=== PATIENT | male | born 1970 | race Caucasian/White ===

== ENCOUNTER 2016-06-09 09:07 | Emergency (ER) | payer SELFPAY ==
[~2016-06-09] VITALS: Wt 72.0 kg
[~2016-06-09 09:07] MED LIST: IBUP800T25 PO
--- NOTE | 2016-06-09 10:53 | RADRPT ---
PROCEDURE: XR Chest. CLINICAL INDICATION: Cough TECHNIQUE: Single portable view of the chest was obtained COMPARISON: 10/07/2015 FINDINGS: There is mild cardiomegaly. There is mild pulmonary vascular congestion. There is no pleural effusion. There is no pneumothorax. The bones and soft tissues are unremarkable. RPTAT: AA IMPRESSION: Mild cardiomegaly with mild pulmonary vascular congestion. .Levon Yadav MD, MD Date Time Electronically viewed and signed by .Levon Yadav MD, on 06/09/2016 10:52 .S/
[2016-06-09] MEDS ORDERED: BENZ100C70 PO (11:47)
[2016-06-09] MEDS ORDERED: ALBU8.5H3 INH (11:47)
[2016-06-09] MEDS ORDERED: AZIT250T94 PO (11:47)
--- NOTE | 2016-06-09 11:51 | ERD ---
ER Documentation Chief Complaint Date/Time DATE: 06/09/16 TIME: 11:48 Chief Complaint cough and bodyaches for the past month. no distress noted. HPI 46-year-old male with no significant past medical history presents the ED complaining of a productive cough and congestion that started 1 month ago. States that he is tried qlqd-qkw-jikazmm cough medication but has not been relieving his symptoms. Denies any sick contacts. Denies any chest pain, shortness of breath, leg swelling, abdominal pain, nausea, vomiting, wheezing. ROS All systems reviewed and are negative except as per history of present illness. Medications Home Meds Active Scripts Albuterol Sulfate* (Proair HFA*) 8.5 Gm Hfa.aer.ad, 2 PUFF INH Q4, #1 INHALER Prov:FRANCIE CUETO PA-C 06/09/16 Benzonatate* (Tessalon Perle*) 100 Mg Capsule, 100 MG PO Q8H Y for COUGH, #20 CAP Prov:FRANCIE CUETO PA-C 06/09/16 Azithromycin* (Zithromax*) 250 Mg Tablet, 250 MG PO .ZPACK DIRECTED, #6 TAB TAKE 500 MG (2 TABS) THE FIRST DAY THEN 250 MG (1 TAB) DAYS 2-5 Prov:FRANCIE CUETO PA-C 06/09/16 Ibuprofen* (Motrin*) 800 Mg Tab, 800 MG PO Q6H Y for PAIN AND OR ELEVATED TEMP, #30 TAB Prov:RASHIDA YOUNGER DO 10/07/15 Allergies Allergies: Coded Allergies: No Known Allergy (Unverified , 10/07/15) PMhx/Soc Medical and Surgical Hx: pt denies Medical Hx, pt denies Surgical Hx Hx Alcohol Use: No Hx Substance Use: No Hx Tobacco Use: No Smoking Status: Never smoker Physical Exam Vitals Vital Signs Date Time Temp Pulse Resp B/P Pulse Ox O2 Delivery O2 Flow Rate FiO2 06/09/16 09:12 99.0 94 20 127/72 97 Physical Exam Const: Vbs-znf-lhrqjawms, well-nourished. In no acute distress. Head: Atraumatic, normocephalic Eyes: Normal Conjunctiva without injection. No purulent discharge. PERRL. EOMI ENT: Normal external ear. Ear canal without erythema. Tympanic membrane pearly gamino without effusion or bulging. Nasal canal clear with normal turbinates. Moist oropharynx without tonsillar exudates. Non-erythematous pharynx. Uvula midline. No drooling. No trismus. Neck: Full range of motion. No meningismus. No cervical lymphadenopathy. Resp: Clear to auscultation bilaterally. No wheezing, rhonchi, rales, or crackles. No accessory muscle use. No retractions. Cardio: Regular rate and rhythm. No murmurs, rubs or gallops. Abd: Soft, non tender, non distended. Normal bowel sounds. No palpable masses. No rebound tenderness. No guarding. Skin: No petechiae or rashes Back: No midline tenderness. No CVA tenderness. Ext: No cyanosis, or edema. Neur: Awake and alert. Psych: Normal Mood and Affect Procedures/MDM This is a 46-year-old male with no significant past medical history presents the ED complaining of a productive cough that occurred 1 month ago. Patient is afebrile and nontoxic-appearing. Patient has normal vital signs. A chest x- ray was ordered to further evaluate patient since his cough has been going on for 1 month. She does not appear in respiratory distress. There is no indication for a breathing treatment at this time. PROCEDURE: XR Chest. CLINICAL INDICATION: Cough TECHNIQUE: Single portable view of the chest was obtained COMPARISON: 10/07/2015 FINDINGS: There is mild cardiomegaly. There is mild pulmonary vascular congestion. There is no pleural effusion. There is no pneumothorax. The bones and soft tissues are unremarkable. RPTAT: AA IMPRESSION: Mild cardiomegaly with mild pulmonary vascular congestion. The findings of mild cardiomegaly with mild pulmonary vascular congestion was discussed with my supervising physician, Dr. Tobin. Both agreed that patient can be managed on outpatient basis at this time. Clinically patient does not appear to have CHF. There is no pitting edema noted. Ihis patient presents to the ED with symptoms consistent with bronchitis. Patient's physical exam include lungs which were clear to auscultation and a normal pulse oximetry. There is a low suspicion for pneumonia, pneumothorax, pulmonary embolism, epiglottitis, otitis media, otitis externa, viral/strep pharyngitis, sinusitis, peritonsillar abscess, mastoiditis, retropharyngeal abscess, meningitis, sepsis , acute abdomen or other emergent conditions. Fluids, rest, and symptomatic treatment are recommended for the management of patient's symptoms. Discharge medications: Zithromax, Tessalon Perles, Pro-air Patient was instructed to return to the ED for any new or worsening symptoms. They should otherwise follow up with the primary care provider within 1-2 days. The patient's questions were answered at the time of discharge. Patient understood and agreed with discharge management. Departure Diagnosis: Primary Impression: Bronchitis Condition: Stable Patient Instructions: Bronchitis, Antiobiotic Treatment (Adult) Referrals: [facility] Usted se dejesus hecho un examen mdico de control que le indica que no est en boy condicin que requiera tratamiento urgente en el Departamento de Emergencia. Un estudio ms profundo y el tratamiento de madrigal condicin pueden esperar sin ningn riesgo hasta que usted sea atendida/o en el consultorio de madrigal mdico o boy cl robert. Es responsabilidad suya arreglar boy leticia para el seguimiento del eulogio. MANEJO DE CONDICIONES NO URGENTES EN EL FUTURO 1) Si usted tiene un mdico de atencin primaria: Usted debera llamar a madrigal mdico de atencin primaria antes de venir al departamento de emergencia. Despus de las horas de consultorio, madrigal doctor o madrigal asociado/a est disponible por telfono. El mdico o enfermero de marisol en el servicio telefnico puede asesorarle por ramona medio para atender el problema, o eulogio contrario se puede programar boy leticia. 2) Si usted no tiene un mdico de atencin primaria: Llame al mdico o clnica de referencia que aparece abajo adriana las horas de consultorio para hacer boy leticia para que le vean. CLINICAS: [facility] 050 [phone] [facility] 147 [phone] [facility] 592 [phone] [facility] 619 [phone] [place] [id number] [phone] [facility]. [phone] [address] [facility]. [facility] () Usted se dejesus hecho un examen mdico de control que le indica que no est en boy condicin que requiera tratamiento urgente en el Departamento de Emergencia. Un estudio ms profundo y el tratamiento de madrigal condicin pueden esperar sin ningn riesgo hasta que usted sea atendida/o en el consultorio de madrigal mdico o boy cl robert. Es responsabilidad suya arreglar boy leticia para el seguimiento del eulogio. MANEJO DE CONDICIONES NO URGENTES EN EL FUTURO 1) Si usted tiene un mdico de atencin primaria: Usted debera llamar a madrigal mdico de atencin primaria antes de venir al departamento de emergencia. Despus de las horas de consultorio, madrigal doctor o madrigal asociado/a est disponible por telfono. El mdico o enfermero de marisol en el servicio telefnico puede asesorarle por ramona medio para atender el problema, o eulogio contrario se puede programar boy leticia. 2) Si usted no tiene un mdico de atencin primaria: Llame al mdico o condado institucions de referencia que aparece abajo adriana las horas de consultorio para hacer boy leticia para que le vean. SI USTED NO PUEDE PAGAR PARA PET[place] UN MEDICO puede ir a: [facility] [address] [place] [address] [facility] [address] [place] [address] [facility] [address] [place] [address] [facility] [address] [place] [address] Additional Instructions: Visite a madrigal mdico maana para un EXAMEN.Regrese a estas instalaciones si no se mejora moise esperbamos o moise le dijimos. FRANCIE CUETO PA-C Jun 09, 2016 11:51
[2016-06-09 11:54] VITALS: BP 118/68; PULSE 68; RESP 20; TEMP 98.3
== END 2016-06-09 11:54 | disposition home or self-care (01) ==
LOC: FTE 09:07
DX: J20.9 Acute bronchitis, unspecified (principal)
CPT/HCPCS: 71010

== ENCOUNTER 2017-01-26 22:34 | Inpatient (IN) | payer MEDICAID ==
[~2017-01-26] VITALS: Ht 172.7 cm; Wt 58.5 kg
[~2017-01-26 22:34] MED LIST changes: +ALBU8.5H3 INH; +AZIT250T94 PO; +BENZ100C70 PO
[2017-01-26 23:14] VITALS: Ht 172.7 cm; Wt 58.5 kg
[2017-01-27] VITALS (10 sets, daily range): BP systolic 99–116; BP diastolic 60–83; PULSE 55–91; RESP 17–20; TEMP 98.1
--- NOTE | 2017-01-27 00:35 | ERA ---
ER Documentation Chief Complaint Date/Time DATE: 01/27/17 TIME: 00:35 Chief Complaint SOB feeling like drowning. HPI The patient is a 46-year-old male, presenting with acute dyspnea, he feels as if he is drowning. He denies similar symptoms previously he does not have any fever, chills, chest pain, abdominal pain, vomiting, dysuria. He does not smoke , drinks socially Past medical history: None Past surgical history: Cardiac valve replacement about 5 months ago however he could not tell me which valve was replaced ROS All systems reviewed and are negative except as per history of present illness. Medications Home Meds Active Scripts Albuterol Sulfate* (Proair HFA*) 8.5 Gm Hfa.aer.ad, 2 PUFF INH Q4, #1 INHALER Prov:FRANCIE CUETO PA-C 06/09/16 Ibuprofen* (Motrin*) 800 Mg Tab, 800 MG PO Q6H Y for PAIN AND OR ELEVATED TEMP, #30 TAB Prov:RASHIDA YOUNGER DO 10/07/15 Reported Medications Warfarin Sodium* (Coumadin*) 2.5 Mg Tablet, 2.5 MG PO DAILY, TAB TAKE 2 TABLETS BY MOUTH ON SUNDAY AND ONE TABLET ALL OTHER DAYS OF THE WEEK 01/27/17 Discontinued Scripts Benzonatate* (Tessalon Perle*) 100 Mg Capsule, 100 MG PO Q8H Y for COUGH, #20 CAP Prov:FRANCIE CUETO PA-C 06/09/16 Azithromycin* (Zithromax*) 250 Mg Tablet, 250 MG PO .ZPACK DIRECTED, #6 TAB TAKE 500 MG (2 TABS) THE FIRST DAY THEN 250 MG (1 TAB) DAYS 2-5 Prov:FRANCIE CUETO PA-C 06/09/16 Allergies Allergies: Coded Allergies: No Known Allergy (Unverified , 10/07/15) PMhx/Soc Hx Alcohol Use: No Hx Substance Use: No Hx Tobacco Use: No Physical Exam Vitals Vital Signs Date Time Temp Pulse Resp B/P Pulse Ox O2 Delivery O2 Flow Rate FiO2 01/27/17 02:27 59 18 127/87 97 Room Air 01/26/17 23:14 98.1 75 24 128/91 98 Physical Exam Const: No acute distress. Head: Atraumatic. Eyes: Normal Conjunctiva. ENT: Normal External Ears, Nose and Mouth. Neck: Full range of motion. No meningismus. Resp: Minimal bibasilar crackles Cardio: Regular rate and rhythm. Abd: Soft, non distended, normal bowel sounds, non tender. Skin: No petechiae or rashes. Back: No midline or flank tenderness. Ext: No cyanosis, or edema. Neur: Awake and alert. No focal deficit Psych: Normal Mood and Affect. Result Diagram: 01/27/17 0044 01/27/17 0044 Results 24 hrs Laboratory Tests Test 01/27/17 00:44 01/27/17 00:57 White Blood Count 6.410^3/ul Red Blood Count 4.8810^6/ul Hemoglobin 14.9g/dl Hematocrit 42.8% Mean Corpuscular Volume 87.7fl Mean Corpuscular Hemoglobin 30.5pg Mean Corpuscular Hemoglobin Concent 34.8g/dl Red Cell Distribution Width 14.6% Platelet Count 48942^3/UL Mean Platelet Volume 9.8fl Neutrophils % 69.9% Lymphocytes % 20.1% Monocytes % 6.0% Eosinophils % 3.3% Basophils % 0.5% Nucleated Red Blood Cells % 0.0/100WBC Neutrophils # (Manual) 4.510^3/ul Lymphocytes # 1.310^3/ul Monocytes # 0.410^3/ul Eosinophils # 0.210^3/ul Basophils # 0.010^3/ul Nucleated Red Blood Cells # 0.010^3/ul Prothrombin Time 21.5Sec Prothrombin Time Ratio 1.7 INR International Normalized Ratio 1.85 Activated Partial Thromboplast Time 36.9Sec D-Dimer 251.08ng/ml D-Dimer Comment Sodium Level 139mmol/L Potassium Level 4.0mmol/L Chloride Level 106mmol/L Carbon Dioxide Level 25mmol/L Anion Gap 12 Blood Urea Nitrogen 9mg/dl Creatinine 0.69mg/dl Glucose Level 85mg/dl Calcium Level 9.6mg/dl Troponin I 0.030ng/ml B-Type Natriuretic Peptide 702PG/ML Bedside Urine pH (LAB) 5.0 Bedside Urine Protein (LAB) Negative Bedside Urine Glucose (UA) Negative Bedside Urine Ketones (LAB) Negative Bedside Urine Blood Negative Bedside Urine Nitrite (LAB) Negative Bedside Urine Leukocyte Esterase (L Negative Current Medications Medications (Trade) Dose Ordered Sig/Barrie Route PRN Reason Start Time Stop Time Status Last Admin Dose Admin Furosemide (Lasix) 20 mg ONCE ONCE IV 01/27/17 02:30 01/27/17 02:31 DC 01/27/17 02:26 IV Flush (NS 3 ml) 3 ml PER PROTOCOL IV 01/27/17 03:30 Ondansetron HCl (Zofran Inj) 4 mg Q6H PRN IV NAUSEA AND/OR VOMITING 01/27/17 03:30 Acetaminophen (Tylenol Tab) 650 mg Q6H PRN PO PAIN LEVEL 1-3 OR FEVER 01/27/17 03:30 Morphine Sulfate (morphine) 2 mg Q4H PRN IV PAIN LEVEL 7-10 01/27/17 03:30 Docusate Sodium (Colace) 100 mg Q12H PRN PO CONSTIPATION 01/27/17 03:30 Bisacodyl (Dulcolax) 5 mg DAILY PRN PO CONSTIPATION 01/27/17 03:30 Famotidine (Pepcid) 20 mg Q12 PO 01/27/17 03:30 Furosemide (Lasix) 40 mg BID DIURETICS IV 01/27/17 10:00 Albuterol (Ventolin Hfa) 2 puff Q4 INH 01/27/17 05:00 Warfarin Sodium (Coumadin) 2.5 mg DAILY@17 PO 01/27/17 17:00 Lisinopril (Zestril) 5 mg DAILY PO 01/27/17 09:00 Procedures/[place] [address] Rad[address] Main Line: [phone] DIAGNOSTIC IMAGING REPORT Patient: FLORIAN LOMBARDI : 1970 Age: 46 Sex: M MR #: [id number] DOS: 01/27/17 0045 Ordering MD: KHOI JOHN MD Location: E/R Room/Bed: PROCEDURE: Portable chest x-ray. CLINICAL INDICATION: Shortness of breath. TECHNIQUE: Portable AP view of the chest. COMPARISON: 06/09/2016. FINDINGS: No pulmonary edema or conolidation is identified. The patient is status post median sternotomy. The cardiac silhouette is magnified. No pleural effusion is seen. There is no pneumothorax. IMPRESSION: 1. No evidence of acute cardiopulmonary disease. 2. Median sternotomy. RPTAT: HTAR .Bryant Melendez MD, MD Date Time Electronically viewed and signed by .Bryant Melendez MD, MD on 01/27/2017 02:09 .R/ CC: KHOI JOHN MD EKG: Read by emergency physician Rate/Rhythm: Normal Sinus Rhythm 63 beats/min QRS, ST, T-waves: No ST elevation, no T inversion, LAE, Inferolateral ST and T abnormality Impression: Abnormal EKG MEDICAL MAKING DECISION: The patient is a 46-year-old male, presenting with acute new onset of CHF. He was treated with Lasix 20 mg IV with good response. The differential diagnoses considered include but are not limited to asthma, COPD, pneumonia, pulmonary embolus, pleural effusion, congestive heart failure. Departure Diagnosis: Primary Impression: CHF (congestive heart failure) Condition: Stable Comments I discussed the findings with the patient. I discussed the patient with the on- call hospitalist Dr. Casas at 2:50 AM. who was made aware of the lab, the treatment, the patient condition. The patient is admitted to telemetry The patient's blood pressure was elevated (>120/80) but appears stable without evidence of hypertension emergency or urgency. The patient was counseled about the risks of hypertension and urged to pursue outpatient monitoring and therapy within a week with their primary care physician. KHOI JOHN MD Jan 27, 2017 00:35
[2017-01-27 00:50] LABS: URINE BLOOD (Dip) POC Negative (NEGATIVE)
[2017-01-27 01:22] LABS: BASOPHILS % 0.5 % (0.0-2.0); EOSINOPHILS # 0.2 10^3/ul (0.0-0.5); EOSINOPHILS % 3.3 % (0.0-7.0); HEMATOCRIT 42.8 % (42.0-52.0); HEMOGLOBIN 14.9 g/dl (14.0-18.0); LYMPHOCYTES # 1.3 10^3/ul (0.8-2.9); LYMPHOCYTES % 20.1 % (15.0-51.0); MEAN CORPUSCULAR HEMOGLOBIN 30.5 pg (29.0-33.0); MEAN CORPUSCULAR HGB CONC 34.8 g/dl (32.0-37.0); MEAN CORPUSCULAR VOLUME 87.7 fl (82.0-101.0); MEAN PLATELET VOLUME 9.8 fl (7.4-10.4); MONOCYTE # 0.4 10^3/ul (0.3-0.9); NEUTROPHILS % 69.9 % (39.0-77.0); PLATELET COUNT 280 10^3/UL (140-415); RED BLOOD COUNT 4.88 10^6/ul (4.70-6.10); RED CELL DISTRIBUTION WIDTH 14.6 % (11.5-14.5); WHITE BLOOD COUNT 6.4 10^3/ul (4.8-10.8)
[2017-01-27 01:35] LABS: INR 1.85; PARTIAL THROMBOPLASTIN TIME 36.9 Sec (25.0-35.0); PROTIME 21.5 Sec (12.2-14.2); PT RATIO 1.7
[2017-01-27 01:37] LABS: CALCIUM 9.6 mg/dl (8.4-10.2); CREATININE 0.69 mg/dl (0.61-1.24)
[2017-01-27 01:38] LABS: D-DIMER 251.08 ng/ml (<460)
[2017-01-27 01:49] LABS: TROPONIN-I 0.03 ng/ml (0.00-0.12)
--- NOTE | 2017-01-27 02:09 | RADRPT ---
PROCEDURE: Portable chest x-ray. CLINICAL INDICATION: Shortness of breath. TECHNIQUE: Portable AP view of the chest. COMPARISON: 06/09/2016. FINDINGS: No pulmonary edema or conolidation is identified. The patient is status post median sternotomy. The cardiac silhouette is magnified. No pleural effusion is seen. There is no pneumothorax. IMPRESSION: 1. No evidence of acute cardiopulmonary disease. 2. Median sternotomy. RPTAT: HTAR .Bryant Melendez MD, MD Date Time Electronically viewed and signed by .Bryant Melendez MD, MD on 01/27/2017 02:09 .R/
[2017-01-27] MEDS ORDERED: WARF2.5T PO (02:22)
[2017-01-27] MEDS ORDERED: FUROSEMIDE 20 MG INJ IV ONE (02:30)
[2017-01-27] MEDS ORDERED: DOCUSATE SODIUM 100 MG CAP PO PRN (03:30)
[2017-01-27] MEDS ORDERED: ONDANSETRON 4 MG INJ IV PRN (03:30)
[2017-01-27] MEDS ORDERED: ACETAMINOPHEN 325 MG TAB PO PRN (03:30)
[2017-01-27] MEDS ORDERED: NACL 0.9% 3 ML SYG IV SCH (03:30)
[2017-01-27] MEDS ORDERED: morphine 2 MG INJ IV PRN (03:30)
[2017-01-27] MEDS ORDERED: BISACODYL (EC) 5 MG TAB PO PRN (03:30)
[2017-01-27 04:21] LABS: TROPONIN-I 0.025 ng/ml (0.00-0.12)
[2017-01-27 04:22] LABS: CK-MB 2.63 ng/ml (0.0-2.4)
[2017-01-27] MEDS ORDERED: ALBUTEROL HFA 8 GM INHALER INH SCH (05:00)
[2017-01-27 05:53] LABS: CHOL/HDL RATIO 2.8 RATIO
[2017-01-27 05:54] LABS: INR 1.9; PT RATIO 1.7
[2017-01-27 06:24] LABS: THYROID STIMULATING HORMONE 2.17 MIU/L (0.465-4.680)
[2017-01-27] MEDS: FAMOTIDINE 20 MG TAB PO SCH ×3 (06:41→21:37)
--- NOTE | 2017-01-27 08:26 | HP ---
Date/Time of Note Date/Time of Note DATE: 01/27/17 TIME: 08:18 Assessment/Plan VTE Prophylaxis VTE Prophylaxis Intervention: other (coumadin) Assessment/Plan Chief Complaint/Hosp Course This is a 46-year-old male being admitted to the telemetry floor for: #1 shortness of breath: Likely secondary to possible new onset CHF. Patient's BNP is 700. Patient does have a recent history of heart valve replacement, though unsure which valve was replaced. At the current time will obtain a echocardiogram. Trend cardiac troponins. Start patient on ALEJANDRO inhibitor. Will defer starting of beta-sabrina at this time secondary to bradycardia. Check lipids. The patient on Lasix for diuresis. Check hemoglobin A1c, cardiology consult. #2 artificial heart valve: Unsure exactly which heart valve was replaced, I feel like he may be a mitral valve however we will get a echocardiogram. Continue patient's Coumadin with goal INR of 2.5-3.5. Check daily INR. #3 DVT and GI prophylaxis: On Coumadin, acid sabrina further treatment surgery will be implemented as per the clinical course , Problems: HPI/ROS Admit Date/Time Admit Date/Time Hx of Present Illness Chief complaint: Shortness of breath 1 day The patient is a 46-year-old male, presenting with acute dyspnea, he feels as if he is drowning. He states that he started feeling this way while he was in [place] last night. He denies similar symptoms previously he does not have any fever, chills, chest pain, abdominal pain, vomiting, dysuria. Of note patient states that he had a cardiac valve replaced approximately 4 months ago however he does not know which valve it is. He is on Coumadin at this time. He has INR checked as an outpatient. Allergies: NKDA Medications: See MAR ROS Const: Negative for fever, chills, weight gain or weight loss, fatigue, or diaphoresis Eyes : No pain discharge or redness or change in visual acuity ENT: No pain, sore throat, congestion, congestion, dysphagia or discharge Respiratory: As per HPI Cardiovascular: As per HPI GI : no change in appetite, abdominal pain, nausea, vomiting, diarrhea, constipation, or change in the color his stool Genitourinary: No dysuria, hematuria, flank pain , discharge or CVA tenderness Musculoskeletal: No joint pain, back pain, neck pain, restricted range of motion in neck or joints Skin: No rash, bruising or hives Neuro: No headache, dizziness, syncope, seizure, focal weakness Endocrine: No polyuria, polydipsia, temperature intolerance Psych: No hallucination, depression, anxiety or suicidal ideation PMH/Family/Social Past Medical History Valve disease Past Surgical History Cardiac valve replaced unknown which valve Family History Significant Family History: heart disease (That) Social History Alcohol Use: sober (Patient used to be a very heavy drinker however he quit 1 year ago) Smoking Status: Former smoker Drug Use: none Exam/Review of Systems Vital Signs Vitals Vital Signs Date Time Temp Pulse Resp B/P Pulse Ox O2 Delivery O2 Flow Rate FiO2 01/27/17 05:30 59 21 113/85 95 Room Air 01/26/17 23:14 98.1 Intake and Output 01/26/17 01/26/17 01/27/17 15:00 23:00 07:00 Output Total 1200 ml Balance -1200 ml Exam Exam General: Patient is lying in bed and does not appear in any acute distress HEENT: Atraumatic, normocephalic. The pupils are equal, round and reactive. Extraocular motor are intact Neck: Supple with full range of motion. No rigidity or meningismus Chest: Nontender Lungs: Mild crackles on auscultation Heart: Sinus bradycardia, possible audible murmur left fifth intercostal space Abdomen: Soft , nontender, nondistended , bowel sounds are present. No guarding no rebound tenderness , No masses or organomegaly. No costovertebral temporal angle mass Extremities: Normal to inspection, no edema no cyanosis Neurologic: Normal mental status, speech normal, cranial nerves II through XII are intact, motor and sensory are intact, no focal weakness skin: Surgical scar a the anterior chest Additional Comments PROCEDURE: Portable chest x-ray. CLINICAL INDICATION: Shortness of breath. TECHNIQUE: Portable AP view of the chest. COMPARISON: 06/09/2016. FINDINGS: No pulmonary edema or conolidation is identified. The patient is status post median sternotomy. The cardiac silhouette is magnified. No pleural effusion is seen. There is no pneumothorax. IMPRESSION: 1. No evidence of acute cardiopulmonary disease. 2. Median sternotomy. RPTAT: HTAR .Bryant Melendez MD, MD Date Time Electronically viewed and signed by .Bryant Melendez MD, MD on 01/27/2017 02:09 .R/ CC: KHOI JOHN MD EKG: Rate/Rhythm: Normal Sinus Rhythm 63 beats/min QRS, ST, T-waves: No ST elevation, no T inversion, LAE, Inferolateral ST and T abnormality As per ED physician recommendation Labs Result Diagram: 01/27/174 01/27/174 Medications Medications Current Medications Ondansetron HCl (Zofran Inj) 4 mg Q6H PRN IV NAUSEA AND/OR VOMITING; Start 01/27 at 03:30 Acetaminophen (Tylenol Tab) 650 mg Q6H PRN PO PAIN LEVEL 1-3 OR FEVER; Start at 03:30 Morphine Sulfate (morphine) 2 mg Q4H PRN IV PAIN LEVEL 7-10; Start 01/27/17 at 03:30 Docusate Sodium (Colace) 100 mg Q12H PRN PO CONSTIPATION; Start 01/27/17 at 03: 30 Bisacodyl (Dulcolax) 5 mg DAILY PRN PO CONSTIPATION; Start 01/27/17 at 03:30 Famotidine (Pepcid) 20 mg Q12 PO Last administered on 01/27/17t 06:41; Admin Dose 20 MG; Start 01/27/17 at 03:30 Albuterol (Ventolin Hfa) 2 puff Q4 INH ; Start 01/27/17 at 05:00 Warfarin Sodium (Coumadin) 2.5 mg DAILY@17 PO ; Start 01/27/17 at 17:00 Lisinopril (Zestril) 5 mg DAILY PO ; Start 01/27/17 at 09:00 ARMANDO ARELLANO Jan 27, 2017 08:26
[2017-01-27] MEDS: ALBUTEROL 18 GM INHALER INH SCH ×4 (09:00→21:00)
[2017-01-27] MEDS: FUROSEMIDE 20 MG INJ IV SCH (09:27)
[2017-01-27] MEDS: LISINOPRIL 5 MG TAB PO SCH (09:39)
[2017-01-27] MEDS ORDERED: FUROSEMIDE 40 MG INJ IV SCH (10:00)
[2017-01-27 10:08] LABS: TROPONIN-I 0.029 ng/ml (0.00-0.12)
[2017-01-27 10:10] LABS: CK-MB 2.21 ng/ml (0.0-2.4)
--- NOTE | 2017-01-27 10:43 | CONS ---
Date/Time of Note Date/Time of Note DATE: 01/27/17 TIME: 10:41 Assessment/Plan Assessment/Plan Additional Assessment/Plan Acute Mild CHF Heart valve replacement -will plan for an echo -iv lasix -on warfarin Consultation Date/Type/Reason Admit Date/Time Hx of Present Illness The patient is a 46-year-old male, presenting with acute dyspnea, he feels as if he is drowning. He states that he started feeling this way while he was in taoism last night. He denies similar symptoms previously he does not have any fever, chills, chest pain, abdominal pain, vomiting, dysuria. Of note patient states that he had a cardiac valve replaced approximately 4 months ago however he does not know which valve it is. He is on Coumadin at this time. He has INR checked as an outpatient. His valve replacement may have been at [facility] and currently doing better with no chest pain Social History Alcohol Use: sober (Patient used to be a very heavy drinker however he quit 1 year ago) Smoking Status: Former smoker Drug Use: none Exam/Review of Systems Vital Signs Vitals Vital Signs Date Time Temp Pulse Resp B/P Pulse Ox O2 Delivery O2 Flow Rate FiO2 01/27/17 10:40 98.2 81 20 116/83 98 01/27/17 09:30 Room Air Intake and Output 01/26/17 01/26/17 01/27/17 15:00 23:00 07:00 Output Total 1200 ml Balance -1200 ml Results Result Diagram: 01/27/17 0044 01/27/17 0044 Results 24 hrs Laboratory Tests Test 01/27/17 00:44 01/27/17 00:57 01/27/17 03:40 01/27/17 05:18 White Blood Count 6.4 Red Blood Count 4.88 Hemoglobin 14.9 Hematocrit 42.8 Mean Corpuscular Volume 87.7 Mean Corpuscular Hemoglobin 30.5 Mean Corpuscular Hemoglobin Concent 34.8 Red Cell Distribution Width 14.6 H Platelet Count 280 Mean Platelet Volume 9.8 Neutrophils % 69.9 Lymphocytes % 20.1 Monocytes % 6.0 Eosinophils % 3.3 Basophils % 0.5 Nucleated Red Blood Cells % 0.0 Neutrophils # (Manual) 4.5 Lymphocytes # 1.3 Monocytes # 0.4 Eosinophils # 0.2 Basophils # 0.0 Nucleated Red Blood Cells # 0.0 Prothrombin Time 21.5 H 22.0 H Prothrombin Time Ratio 1.7 1.7 INR International Normalized Ratio 1.85 1.90 Activated Partial Thromboplast Time 36.9 H D-Dimer 251.08 D-Dimer Comment Sodium Level 139 Potassium Level 4.0 Chloride Level 106 Carbon Dioxide Level 25 Anion Gap 12 Blood Urea Nitrogen 9 Creatinine 0.69 Glucose Level 85 Calcium Level 9.6 Troponin I 0.030 0.025 B-Type Natriuretic Peptide 702 H Bedside Urine pH (LAB) 5.0 Bedside Urine Protein (LAB) Negative Bedside Urine Glucose (UA) Negative Bedside Urine Ketones (LAB) Negative Bedside Urine Blood Negative Bedside Urine Nitrite (LAB) Negative Bedside Urine Leukocyte Esterase (L Negative Creatine Kinase 93 Creatine Kinase Index 2.8 Creatinine Kinase MB (Mass) 2.63 H Hemoglobin A1c 5.2 Triglycerides Level 111 Cholesterol Level 166 LDL Cholesterol, Calculated 86 HDL Cholesterol 58 Cholesterol/HDL Ratio 2.8 Thyroid Stimulating Hormone (TSH) 2.170 Test 01/27/17 09:27 Creatine Kinase 84 Creatine Kinase Index 2.6 Creatinine Kinase MB (Mass) 2.21 Troponin I 0.029 Medications Medications Current Medications Ondansetron HCl (Zofran Inj) 4 mg Q6H PRN IV NAUSEA AND/OR VOMITING; Start 01/27 at 03:30 Acetaminophen (Tylenol Tab) 650 mg Q6H PRN PO PAIN LEVEL 1-3 OR FEVER; Start at 03:30 Morphine Sulfate (morphine) 2 mg Q4H PRN IV PAIN LEVEL 7-10; Start 01/27/17 at 03:30 Docusate Sodium (Colace) 100 mg Q12H PRN PO CONSTIPATION; Start 01/27/17 at 03: 30 Bisacodyl (Dulcolax) 5 mg DAILY PRN PO CONSTIPATION; Start 01/27/17 at 03:30 Famotidine (Pepcid) 20 mg Q12 PO Last administered on 01/27/17 09:23; Admin Dose 20 MG; Start 01/27/17 at 03:30 Warfarin Sodium (Coumadin) 2.5 mg DAILY@17 PO ; Start 01/27/17 at 17:00 Lisinopril (Zestril) 5 mg DAILY PO Last administered on 01/27/17 09:39; Admin Dose 5 MG; Start 01/27/17 at 09:00 Furosemide (Lasix) 20 mg DAILY IV Last administered on 01/27/17t 09:27; Admin Dose 20 MG; Start 01/27/17 at 09:00 FEI BROWN MD Jan 27, 2017 10:43
--- NOTE | 2017-01-27 17:36 | PN ---
Date/Time of Note Date/Time of Note DATE: 01/27/17 TIME: 17:33 Assessment/Plan VTE Prophylaxis VTE Prophylaxis Intervention: LMWH, other Lines/Catheters IV Catheter Type (from Nrs): Saline Lock Assessment/Plan Chief Complaint/Hosp Course 46 yo male with h/o mechanical valve replacement on coumadin (unclear details) who presents with acute diastolic CHF exacerbation - Await TTE result - Continue lasix for now - Continue coumadin to INR 2.5 goal Bobbi rasheed tomorrow Problems: Subjective 24 Hr Interval Summary Free Text/Dictation Feeling better he says, has filled three urine bottles, but unclear exact output Exam/Review of Systems Vital Signs Vitals Vital Signs Date Time Temp Pulse Resp B/P Pulse Ox O2 Delivery O2 Flow Rate FiO2 01/27/17 16:00 64 01/27/17 15:21 97.8 17 100/61 97 01/27/17 09:30 Room Air Intake and Output 01/26/17 01/26/17 01/27/17 15:00 23:00 07:00 Output Total 1200 ml Balance -1200 ml Exam Walking aroudn his room RRR, flat neck veins CLear lungs No peripehral edema Results Result Diagram: 01/27/17 0044 01/27/17 0044 Results 24 hrs Laboratory Tests Test 01/27/17 00:44 01/27/17 00:57 01/27/17 03:40 01/27/17 05:18 White Blood Count 6.4 Red Blood Count 4.88 Hemoglobin 14.9 Hematocrit 42.8 Mean Corpuscular Volume 87.7 Mean Corpuscular Hemoglobin 30.5 Mean Corpuscular Hemoglobin Concent 34.8 Red Cell Distribution Width 14.6 H Platelet Count 280 Mean Platelet Volume 9.8 Neutrophils % 69.9 Lymphocytes % 20.1 Monocytes % 6.0 Eosinophils % 3.3 Basophils % 0.5 Nucleated Red Blood Cells % 0.0 Neutrophils # (Manual) 4.5 Lymphocytes # 1.3 Monocytes # 0.4 Eosinophils # 0.2 Basophils # 0.0 Nucleated Red Blood Cells # 0.0 Prothrombin Time 21.5 H 22.0 H Prothrombin Time Ratio 1.7 1.7 INR International Normalized Ratio 1.85 1.90 Activated Partial Thromboplast Time 36.9 H D-Dimer 251.08 D-Dimer Comment Sodium Level 139 Potassium Level 4.0 Chloride Level 106 Carbon Dioxide Level 25 Anion Gap 12 Blood Urea Nitrogen 9 Creatinine 0.69 Glucose Level 85 Calcium Level 9.6 Troponin I 0.030 0.025 B-Type Natriuretic Peptide 702 H Bedside Urine pH (LAB) 5.0 Bedside Urine Protein (LAB) Negative Bedside Urine Glucose (UA) Negative Bedside Urine Ketones (LAB) Negative Bedside Urine Blood Negative Bedside Urine Nitrite (LAB) Negative Bedside Urine Leukocyte Esterase (L Negative Creatine Kinase 93 Creatine Kinase Index 2.8 Creatinine Kinase MB (Mass) 2.63 H Hemoglobin A1c 5.2 Triglycerides Level 111 Cholesterol Level 166 LDL Cholesterol, Calculated 86 HDL Cholesterol 58 Cholesterol/HDL Ratio 2.8 Thyroid Stimulating Hormone (TSH) 2.170 Test 01/27/17 09:27 Creatine Kinase 84 Creatine Kinase Index 2.6 Creatinine Kinase MB (Mass) 2.21 Troponin I 0.029 Medications Medications Current Medications Ondansetron HCl (Zofran Inj) 4 mg Q6H PRN IV NAUSEA AND/OR VOMITING; Start 01/27 at 03:30 Acetaminophen (Tylenol Tab) 650 mg Q6H PRN PO PAIN LEVEL 1-3 OR FEVER; Start at 03:30 Morphine Sulfate (morphine) 2 mg Q4H PRN IV PAIN LEVEL 7-10; Start 01/27/17 at 03:30 Docusate Sodium (Colace) 100 mg Q12H PRN PO CONSTIPATION; Start 01/27/17 at 03: 30 Bisacodyl (Dulcolax) 5 mg DAILY PRN PO CONSTIPATION; Start 01/27/17 at 03:30 Famotidine (Pepcid) 20 mg Q12 PO Last administered on 01/27/17 09:23; Admin Dose 20 MG; Start 01/27/17 at 03:30 Warfarin Sodium (Coumadin) 2.5 mg DAILY@17 PO ; Start 01/27/17 at 17:00 Lisinopril (Zestril) 5 mg DAILY PO Last administered on 01/27/17 09:39; Admin Dose 5 MG; Start 01/27/17 at 09:00 Furosemide (Lasix) 20 mg DAILY IV Last administered on 01/27/17 09:27; Admin Dose 20 MG; Start 01/27/17 at 09:00 DEVEN METZ MD Jan 27, 2017 17:36
[2017-01-27] MEDS: WARFARIN 2.5 MG TAB PO SCH (18:18)
[2017-01-28] VITALS (10 sets, daily range): BP systolic 95–108; BP diastolic 60–77; PULSE 61–98; RESP 16–20
[2017-01-28] MEDS: ALBUTEROL 18 GM INHALER INH SCH ×6 (01:00→21:43)
[2017-01-28 06:20] LABS: BASOPHILS % 0.6 % (0.0-2.0); EOSINOPHILS # 0.4 10^3/ul (0.0-0.5); EOSINOPHILS % 7.2 % (0.0-7.0); HEMATOCRIT 46.5 % (42.0-52.0); HEMOGLOBIN 15.5 g/dl (14.0-18.0); MEAN CORPUSCULAR HEMOGLOBIN 29.2 pg (29.0-33.0); MEAN CORPUSCULAR HGB CONC 33.3 g/dl (32.0-37.0); MEAN CORPUSCULAR VOLUME 87.7 fl (82.0-101.0); MEAN PLATELET VOLUME 9.7 fl (7.4-10.4); MONOCYTE # 0.5 10^3/ul (0.3-0.9); MONOCYTES % 8.5 % (0.0-11.0); NEUTROPHILS % 46.5 % (39.0-77.0); PLATELET COUNT 276 10^3/UL (140-415); RED CELL DISTRIBUTION WIDTH 14.6 % (11.5-14.5); WHITE BLOOD COUNT 5.4 10^3/ul (4.8-10.8)
[2017-01-28 06:35] LABS: INR 2.73; PROTIME 29.3 Sec (12.2-14.2); PT RATIO 2.3
[2017-01-28 06:42] LABS: ALBUMIN 4.4 g/dl (3.3-4.9); ALBUMIN/GLOBULIN RATIO 1.41; BILIRUBIN,INDIRECT 1.1 mg/dl (0-1.1); BILIRUBIN,TOTAL 1.1 mg/dl (0.2-1.3); CALCIUM 9.8 mg/dl (8.4-10.2); CREATININE 0.98 mg/dl (0.61-1.24); MAGNESIUM 1.8 mg/dl (1.7-2.5); POTASSIUM 4.1 mmol/L (3.5-5.1); TOTAL PROTEIN 7.5 g/dl (6.1-8.1)
[2017-01-28] MEDS: LISINOPRIL 5 MG TAB PO SCH (09:38)
[2017-01-28] MEDS: FUROSEMIDE 20 MG INJ IV SCH (09:38)
[2017-01-28] MEDS: FAMOTIDINE 20 MG TAB PO SCH ×2 (09:38→21:43)
--- NOTE | 2017-01-28 10:17 | PN ---
DATE: 01/28/2017 SUBJECTIVE DATA: The patient reports that his shortness of breath is improved. He is currently resting comfortably in a hospital bed. PHYSICAL EXAMINATION: GENERAL: In no distress. VITAL SIGNS: Temperature 98, pulse 84, blood pressure 106/63, oxygen saturation 98 percent. NECK: No jugular venous distention. LUNGS: Clear. HEART: Reveals a regular rate and rhythm with a valve click appreciated. ABDOMEN: Soft. EXTREMITIES: No edema. MEDICATIONS: 1. Warfarin. 2. Lisinopril. 3. Furosemide. 4. Albuterol. 5. Zofran. LAB RESULTS: CBC within normal limits. Chem 7 within normal limits. INR 2.7, therapeutic for metallic valve. ASSESSMENT: 1. Congestive heart failure. 2. Recent valve replacement approximately 4 months ago on Coumadin. Clinically appears to be doing much better. We will follow up transthoracic echocardiogram. Dictated By: David Sanford MD /aria/kenny /Document#: [id number]
--- NOTE | 2017-01-28 11:10 | RADRPT ---
Echocardiogram Report Patient Name: FLORIAN LOMBARDI Gender: Male Date: 1970 Study Date: 27-Jan-2017 Survey Cad Technician: Boni Xavier [facility] Location: [facility] [place] Ref. Physician: ARMANDO ARELLANO Quality: Adequate Procedures: Transthoracic echocardiogram with complete 2D, M-Mode, and doppler examination. Indications: New onset chf. 2D/M Mode Doppler Measurement Value Normal Ranges Measurement Value Normal Ranges LVIDd 2D 4.2 3.5 - 5.6 cm AV Mean Eligio 1.3 m/sec LVIDs 2D 3.1 2.1 - 4.1 cm AV Mean PG 8.0 mmHg FS 2D 25.2 % AV Peak Eligio 2.1 m/sec LVPWd 2D 1.5 0.6 - 1.1 cm AV Peak PG 18.0 mmHg IVSd 2D 1.7 0.6 - 1.1 cm AV VTI 34.9 cm IVS/LVPW 2D 1.1 LVOT Mean Eligio 0.8 m/sec AoR Diam 2D 2.1 2.0 - 3.7 cm LVOT Mean PG 3.0 mmHg LA/Ao 2D 1 0 - 1 LVOT Peak Eligio 1.2 m/sec EDV 2D 74.1 cm3 LVOT Peak PG 6.0 mmHg ESV 2D 31.0 cm3 LVOT VTI 23.6 cm LA Dimen 2D 3.1 2.3 - 4.0 cm MV E Peak Eligio 0.5 m/sec MV A Peak Eligio 0.7 m/sec MV E/A 0.7 MV Decel Time 292 msec MV E/A 0.7 TR Peak Eligio 2.2 m/sec TR Peak PG 18.0 mmHg RVSP 21.0 mmHg Findings Left Ventricle: Hyperdynamic left ventricular systolic function. Normal left ventricular cavity size. Severe concentric left ventricular hypertrophy. Ejection fraction is visually estimated at 70 %. Tissue Doppler/Mitral Doppler indices are consistent with impaired relaxation (Stage I diastolic dysfunction). Right Ventricle: Normal right ventricular size. Normal right ventricular systolic function. Left Atrium: The left atrium is normal in size. Right Atrium: The right atrium is normal in size. Mitral Valve: Mild mitral leaflet calcification. Mild mitral annular calcification. Trace mitral regurgitation. Aortic Valve: Aortic Valve Bio Prosthesis. Aortic valve Max velocity 2.13 m/sec. Max PG 18.00 mmHg. Mean PG 8.00 mmHg. Tricuspid Valve: Normal appearance of the tricuspid valve. Estimated peak PA systolic pressure 21 mmHg. There is trace tricuspid regurgitation. Pulmonic Valve: Pulmonic valve not well visualized. There is trace pulmonic regurgitation. Pericardium: Normal pericardium with no significant pericardial effusion. Aorta: Normal aortic root. IVC: Normal size and normal respiratory collapse consistent with normal right atrial pressure. Conclusions 1.Hyperdynamic left ventricular systolic function. Normal left ventricular cavity size. Severe concentric left ventricular hypertrophy. Ejection fraction is visually estimated at 70 %. Tissue Doppler/Mitral Doppler indices are consistent with impaired relaxation (Stage I diastolic dysfunction). 2.Aortic Valve Bio Prosthesis. Aortic valve Max velocity 2.13 m/sec. Max PG 18.00 mmHg. Mean PG 8.00 mmHg. Electronically Signed By: David Sanford 28-Jan-2017 11:09:25 -0700 Patient Name: FLORIAN LOMBARDI Study Date: 27-Jan-2017 [id number]
[2017-01-28] MEDS: WARFARIN 2.5 MG TAB PO SCH (17:00)
--- NOTE | 2017-01-28 18:21 | PN ---
Date/Time of Note Date/Time of Note DATE: 01/28/17 TIME: 18:18 Assessment/Plan VTE Prophylaxis VTE Prophylaxis Intervention: other Lines/Catheters IV Catheter Type (from Nrs): Saline Lock Urinary Cath still in place: No Assessment/Plan Chief Complaint/Hosp Course 46 yo male with h/o aortic mechanical valve replacement on coumadin who presents with acute diastolic CHF exacerbation Acute diastolic CHF exacerbation: - TTE showing severe LVH, unclear if related to mechanical valve or preceded it - Euvolemic, will continue 20 PO lasix as maintenance - Continue coumadin to INR 2.5 goal - Can continue lisinopril 5 but BP is low end, defer to cardiology Likely dc tomorrow pending cardiology input Problems: Subjective 24 Hr Interval Summary Free Text/Dictation Doign well, breathing is back to baseline Creatinine has bumped with diuresis TTE shows severe concerntic LVH, normal EF Exam/Review of Systems Vital Signs Vitals Vital Signs Date Time Temp Pulse Resp B/P Pulse Ox O2 Delivery O2 Flow Rate FiO2 01/28/17 16:00 98.2 80 18 98/73 98 Room Air Intake and Output 01/27/17 01/27/17 01/28/17 15:00 23:00 07:00 Intake Total 900 ml 400 ml Balance 900 ml 400 ml Exam JVP flat, apperas euvolemic RRR 2/6 murmur from valve Lugns clear No edema Results Result Diagram: 01/28/17 0601 01/28/17 0601 Results 24 hrs Laboratory Tests Test 01/28/17 06:01 White Blood Count 5.4 Red Blood Count 5.30 Hemoglobin 15.5 Hematocrit 46.5 Mean Corpuscular Volume 87.7 Mean Corpuscular Hemoglobin 29.2 Mean Corpuscular Hemoglobin Concent 33.3 Red Cell Distribution Width 14.6 H Platelet Count 276 Mean Platelet Volume 9.7 Neutrophils % 46.5 Lymphocytes % 37.0 Monocytes % 8.5 Eosinophils % 7.2 H Basophils % 0.6 Nucleated Red Blood Cells % 0.0 Neutrophils # (Manual) 2.5 Lymphocytes # 2.0 Monocytes # 0.5 Eosinophils # 0.4 Basophils # 0.0 Nucleated Red Blood Cells # 0.0 Prothrombin Time 29.3 #H Prothrombin Time Ratio 2.3 INR International Normalized Ratio 2.73 Sodium Level 138 Potassium Level 4.1 Chloride Level 100 Carbon Dioxide Level 30 Anion Gap 12 Blood Urea Nitrogen 20 # Creatinine 0.98 Glucose Level 88 Calcium Level 9.8 Magnesium Level 1.8 Total Bilirubin 1.1 Direct Bilirubin 0.00 Indirect Bilirubin 1.1 Aspartate Amino Transf (AST/SGOT) 37 Alanine Aminotransferase (ALT/SGPT) 62 Alkaline Phosphatase 93 Total Protein 7.5 Albumin 4.4 Globulin 3.10 Albumin/Globulin Ratio 1.41 Medications Medications Current Medications Ondansetron HCl (Zofran Inj) 4 mg Q6H PRN IV NAUSEA AND/OR VOMITING; Start 01/27 at 03:30 Acetaminophen (Tylenol Tab) 650 mg Q6H PRN PO PAIN LEVEL 1-3 OR FEVER; Start at 03:30 Morphine Sulfate (morphine) 2 mg Q4H PRN IV PAIN LEVEL 7-10; Start 01/27/17 at 03:30 Docusate Sodium (Colace) 100 mg Q12H PRN PO CONSTIPATION; Start 01/27/17 at 03: 30 Bisacodyl (Dulcolax) 5 mg DAILY PRN PO CONSTIPATION; Start 01/27/17 at 03:30 Famotidine (Pepcid) 20 mg Q12 PO Last administered on 01/28/17 09:38; Admin Dose 20 MG; Start 01/27/17 at 03:30 Warfarin Sodium (Coumadin) 2.5 mg DAILY@17 PO Last administered on 01/28/17 17 :00; Admin Dose 2.5 MG; Start 01/27/17 at 17:00 Lisinopril (Zestril) 5 mg DAILY PO Last administered on 01/28/17 09:38; Admin Dose 5 MG; Start 01/27/17 at 09:00 Furosemide (Lasix) 20 mg DAILY PO ; Start 01/29/17 at 09:00 DEVEN METZ MD Jan 28, 2017 18:20
[2017-01-29] VITALS (11 sets, daily range): BP systolic 99–112; BP diastolic 53–68; PULSE 60–90; RESP 18–20
[2017-01-29] MEDS: ALBUTEROL 18 GM INHALER INH SCH ×5 (01:00→17:17)
[2017-01-29 08:08] LABS: INR 2.79; PROTIME 29.8 Sec (12.2-14.2); PT RATIO 2.3
[2017-01-29] MEDS: LISINOPRIL 5 MG TAB PO SCH (08:33)
[2017-01-29] MEDS: FAMOTIDINE 20 MG TAB PO SCH (08:33)
[2017-01-29 08:41] LABS: MAGNESIUM 1.8 mg/dl (1.7-2.5)
[2017-01-29] MEDS ORDERED: FUROSEMIDE 20 MG TAB PO SCH (09:00)
--- NOTE | 2017-01-29 14:39 | PDOCDIS ---
Discharge Instructions CONDITION Patient Condition: Good HOME CARE INSTRUCTIONS: Special Diet: CARDIAC ACTIVITY: Activity Restrictions: No Restrictions FOLLOW UP/APPOINTMENTS Follow-up Plan FOLLOW UP WITH YOUR PRIMARY CARE PHYSICIAN IN 1-2 WEEKS DARRELL PLATA Jan 29, 2017 14:39
--- NOTE | 2017-01-29 14:52 | CONS ---
Date/Time of Note Date/Time of Note DATE: 01/29/17 TIME: 14:50 Assessment/Plan Assessment/Plan Additional Assessment/Plan Mild acute decompensated diastolic congestive heart failure Preserved ejection fraction Left ventricular hypertrophy Aortic valve replacement -Patient appears euvolemic, continue maintenance diuretics as renal function and blood pressure tolerates. DC planning Consultation Date/Type/Reason Admit Date/Time Jan 27, 2017 at 02:53 Initial Consult Date Type of Consultation: cv 24 HR Interval Summary Free Text/Dictation Shortness of breath is better, denies symptoms with ambulation. Denies chest pain Exam/Review of Systems Vital Signs Vitals Vital Signs Date Time Temp Pulse Resp B/P Pulse Ox O2 Delivery O2 Flow Rate FiO2 01/29/17 12:50 90 01/29/17 11:07 97.7 18 105/66 96 01/28/17 16:00 Room Air Intake and Output 01/28/17 01/28/17 01/29/17 15:00 23:00 07:00 Intake Total 360 ml 550 ml 400 ml Balance 360 ml 550 ml 400 ml Exam No apparent distress, sitting in chair Constitutional: alert, oriented Head: normocephalic Respiratory: other (Coarse breath sounds bilaterally, no wheezing) Cardiovascular: other (S1-S2 heard), regular rate and rhythm, systolic murmur Gastrointestinal: bowel sounds, non-tender, soft Extremities: other (No edema) Results Result Diagram: 01/28/17 0601 01/28/17 0601 Results 24 hrs Laboratory Tests Test 01/29/17 06:29 Prothrombin Time 29.8 H Prothrombin Time Ratio 2.3 INR International Normalized Ratio 2.79 Magnesium Level 1.8 B-Type Natriuretic Peptide 540 H Medications Medications Current Medications Ondansetron HCl (Zofran Inj) 4 mg Q6H PRN IV NAUSEA AND/OR VOMITING; Start 01/27 at 03:30 Acetaminophen (Tylenol Tab) 650 mg Q6H PRN PO PAIN LEVEL 1-3 OR FEVER; Start at 03:30 Morphine Sulfate (morphine) 2 mg Q4H PRN IV PAIN LEVEL 7-10; Start 01/27/17 at 03:30 Docusate Sodium (Colace) 100 mg Q12H PRN PO CONSTIPATION; Start 01/27/17 at 03: 30 Bisacodyl (Dulcolax) 5 mg DAILY PRN PO CONSTIPATION; Start 01/27/17 at 03:30 Famotidine (Pepcid) 20 mg Q12 PO Last administered on 01/29/17 08:33; Admin Dose 20 MG; Start 01/27/17 at 03:30 Warfarin Sodium (Coumadin) 2.5 mg DAILY@17 PO Last administered on 01/28/17 17 :00; Admin Dose 2.5 MG; Start 01/27/17 at 17:00 Lisinopril (Zestril) 5 mg DAILY PO Last administered on 01/29/17 08:33; Admin Dose 5 MG; Start 01/27/17 at 09:00 Furosemide (Lasix) 20 mg DAILY PO Last administered on 01/29/17 08:33; Admin Dose 20 MG; Start 01/29/17 at 09:00 Emre Johnson DO Jan 29, 2017 14:52
[2017-01-29] MEDS ORDERED: LAS20 PO (14:54)
--- NOTE | 2017-01-29 14:57 | DS ---
Date/Time of Note Date/Time of Note DATE: 01/29/17 TIME: 14:50 Discharge Summary Admission/Discharge Info Admit Date/Time Jan 27, 2017 at 02:53 Discharge Date/Time January 29, 2017 Discharge Diagnosis Acute diastolic CHF exacerbation: Resolved - TTE showing severe LVH, unclear if related to mechanical valve or preceded it - Euvolemic, is status post Lasix - Continue coumadin to INR 2.5 goal -No lisinopril upon DC as BP is low Patient Condition: Good Hx of Present Illness Hospital Course Patient is a 46-year-old male, presenting with acute dyspnea, he feels as if he is drowning. He denied similar symptoms previously. Of note patient states that he had a cardiac valve replaced approximately 4 months ago however he did not know which valve it is. He is on Coumadin at this time. He has INR checked as an outpatient. Chest x-ray shows no pulmonary edema but BNP was elevated, patient was started on Lasix and shortness of breath did improve. Patient was started on lisinopril but BP was very low. She was seen by cardiology and echo was done which showed LVH with stage I diastolic heart failure as well as an aortic valve replacement. On day of discharge patient was felt to be euvolemic and shortness of breath did resolve. Patient had no acute complaints on day of discharge, vitals, physical exam and labs are stable and questions are answered. Home Meds Active Scripts Albuterol Sulfate* (Proair HFA*) 8.5 Gm Hfa.aer.ad, 2 PUFF INH Q4, #1 INHALER Prov:FRANCIE CUETO PA-C 06/09/16 Ibuprofen* (Motrin*) 800 Mg Tab, 800 MG PO Q6H Y for PAIN AND OR ELEVATED TEMP, #30 TAB Prov:RASHIDA YOUNGER DO 10/07/15 Reported Medications Warfarin Sodium* (Coumadin*) 2.5 Mg Tablet, 2.5 MG PO DAILY, TAB TAKE 2 TABLETS BY MOUTH ON SUNDAY AND ONE TABLET ALL OTHER DAYS OF THE WEEK 01/27/17 Discontinued Scripts Benzonatate* (Tessalon Perle*) 100 Mg Capsule, 100 MG PO Q8H Y for COUGH, #20 CAP Prov:FRANCIE CUETO PA-C 06/09/16 Azithromycin* (Zithromax*) 250 Mg Tablet, 250 MG PO .FANTASMA DIRECTED, #6 TAB TAKE 500 MG (2 TABS) THE FIRST DAY THEN 250 MG (1 TAB) DAYS 2-5 Prov:FRANCIE CUETO PA-C 06/09/16 Follow-up Plan Follow-up with primary care physician and nurseryman assistant in 1-2 weeks Primary Care Provider Care Physician No Primary Time spent on discharge: > 30 minutes DARRELL PLATA Jan 29, 2017 14:57
[2017-01-29] MEDS: WARFARIN 2.5 MG TAB PO SCH (17:17)
== END 2017-01-29 18:52 | disposition home or self-care (01) | DRG 293 ==
LOC: E/R 22:34 → TEL 01-27 02:53
PROVIDERS: ADMIT Family Medicine; ATTEND Family Medicine
DX: I50.33 Acute on chronic diastolic (congestive) heart failure (principal); Z95.2 Presence of prosthetic heart valve; Z79.01 Long term (current) use of anticoagulants; Z87.891 Personal history of nicotine dependence
CPT/HCPCS: 36415; 71010; 80048; 80053; 80061; 81003; 82550; 82553; 83036; 83735; 83880; 84443; 84484; 85025; 85378; 85610; 85730; 93005; 93306; 96374; 96376; J1940

== ENCOUNTER 2017-01-31 12:31 | Emergency (ER) | payer MEDICAID ==
[~2017-01-31] VITALS: Wt 57.0 kg
[~2017-01-31 12:31] MED LIST changes: -AZIT250T94 PO; -BENZ100C70 PO; +LAS20 PO; +WARF2.5T PO
[2017-01-31] MEDS ORDERED: FURO-110 PO (14:03)
--- NOTE | 2017-01-31 14:03 | ERD ---
ER Documentation Chief Complaint Date/Time DATE: 01/31/17 TIME: 14:00 Chief Complaint PT HERE FOR MED REFILL HPI 46-year-old male who presents emergency department for medication refill of his Lasix 20 mg daily. No other complaints. ROS All systems reviewed and are negative except as per history of present illness. Medications Home Meds Active Scripts Furosemide* (Lasix*) 20 Mg Tablet, 20 MG PO DAILY, #60 TAB Prov:URBAN KEITH 01/31/17 Furosemide (Lasix) 20 Mg Tab, 20 MG PO DAILY, #60 TAB 1 Refill Prov:DARRELL PLATA 01/29/17 Albuterol Sulfate* (Proair HFA*) 8.5 Gm Hfa.aer.ad, 2 PUFF INH Q4, #1 INHALER Prov:FRANCIE CUETO PA-C 06/09/16 Ibuprofen* (Motrin*) 800 Mg Tab, 800 MG PO Q6H Y for PAIN AND OR ELEVATED TEMP, #30 TAB Prov:RASHIDA YOUNGER DO 10/07/15 Reported Medications Warfarin Sodium* (Coumadin*) 2.5 Mg Tablet, 2.5 MG PO DAILY, TAB TAKE 2 TABLETS BY MOUTH ON SUNDAY AND ONE TABLET ALL OTHER DAYS OF THE WEEK 01/27/17 Discontinued Scripts Benzonatate* (Tessalon Perle*) 100 Mg Capsule, 100 MG PO Q8H Y for COUGH, #20 CAP Prov:FRANCIE CUETO PA-C 06/09/16 Azithromycin* (Zithromax*) 250 Mg Tablet, 250 MG PO .ZPACK DIRECTED, #6 TAB TAKE 500 MG (2 TABS) THE FIRST DAY THEN 250 MG (1 TAB) DAYS 2-5 Prov:FRANCIE CUETO PA-C 06/09/16 Allergies Allergies: Coded Allergies: No Known Allergy (Unverified , 10/07/15) PMhx/Soc History of Surgery: Yes (cabg) Anesthesia Reaction: No Hx Neurological Disorder: No Hx Respiratory Disorders: No Hx Cardiac Disorders: Yes (heart valve replacement about 4 mo. ago ) Hx Psychiatric Problems: No Hx Miscellaneous Medical Probl: No Hx Alcohol Use: Yes (occasional social) Hx Substance Use: No Hx Tobacco Use: No Physical Exam Vitals Vital Signs Date Time Temp Pulse Resp B/P Pulse Ox O2 Delivery O2 Flow Rate FiO2 9/13/17 12:32 97.8 65 18 123/80 98 Physical Exam Const: [] Head: Atraumatic Eyes: Normal Conjunctiva ENT: Normal External Ears, Nose and Mouth. Neck: Full range of motion..~ No meningismus. Resp: Clear to auscultation bilaterally Cardio: Regular rate and rhythm, no murmurs Abd: Soft, non tender, non distended. Normal bowel sounds Skin: No petechiae or rashes Back: No midline or flank tenderness Ext: No cyanosis, or edema Neur: Awake and alert Psych: Normal Mood and Affect Procedures/MDM Examination: Physical examination. Disease process, medical treatment was explained to the patient and family member. They verbalized understanding and agreed with the medical treatment, and follow-up care. Medical decision making: Discharge with a final diagnosis medication refill. Medications prescribed are the following: Lasix 20 mg. Patient and family member are made aware of the side effects and adverse reactions of the medications prescribed. Instructed on when to seek emergent and medical attention in case allergic/anaphylactic reactions or severe side effects and or adverse reactions to medications. Patient and family member verbalized understanding. Patient instructed Instructed to follow-up with his PCP in 24-48 hours. Instructed to Call 911 for chest pain, shortness of breath. Advised to come back here in ED as soon as possible for severity of symptoms which includes but not limited to: any new symptoms; shortness of breath/difficulty of breathing; cardiovascular changes; severe gastrointestinal symptoms; signs and symptoms of bleeding and or infection; signs of compartment syndrome/neurovascular changes; neurological changes/deficits. Patient and family member verbalized understanding. Upon discharge, patient is alert and oriented x 4, speaks full and clear sentences, denies pain, has no neurological deficits, has no neurovascular deficits, difficulty of breathing. Breathing even and unlabored. Lung sounds are clear to auscultation. Not in distress. Appears comfortable. Ambulatory with steady gait. Appears satisfied with care provided here in ED. Departure Diagnosis: Primary Impression: Encounter for medication refill Condition: Stable Additional Instructions: Instructed to follow-up with his PCP in 24-48 hours. Instructed to Call 911 for chest pain, shortness of breath. Advised to come back here in ED as soon as possible for severity of symptoms which includes but not limited to: any new symptoms; shortness of breath/difficulty of breathing; cardiovascular changes; severe gastrointestinal symptoms; signs and symptoms of bleeding and or infection; signs of compartment syndrome/neurovascular changes; neurological changes/deficits. Patient and family member verbalized understanding. URBAN KEITH Jan 31, 2017 14:03 Additional Instructions: Instructed to follow-up with his PCP in 24-48 hours. Instructed to Call 911 for chest pain, shortness of breath. Advised to come back here in ED as soon as possible for severity of symptoms which includes but not limited to: any new symptoms; shortness of breath/difficulty of breathing; cardiovascular changes; severe gastrointestinal symptoms; signs and symptoms of bleeding and or infection; signs of compartment syndrome/neurovascular changes; neurological changes/deficits. Patient and family member verbalized understanding. URBAN KEITH Jan 31, 2017 14:03
== END 2017-01-31 14:40 | disposition home or self-care (01) ==
LOC: FTE 12:31
DX: Z76.0 Encounter for issue of repeat prescription (principal); Z79.01 Long term (current) use of anticoagulants; Z95.1 Presence of aortocoronary bypass graft
CPT/HCPCS: 99281

== ENCOUNTER 2017-02-09 14:12 | Emergency (ER) | payer MEDICAID ==
[~2017-02-09] VITALS: Wt 71.0 kg
[~2017-02-09 14:12] MED LIST changes: +FURO-110 PO
[2017-02-09] MEDS ORDERED: ALBU18HF INHALATION (16:15)
--- NOTE | 2017-02-09 16:22 | ERD ---
ER Documentation Chief Complaint Date/Time DATE: 02/09/17 TIME: 16:19 Chief Complaint RECHECK FOR COUGH HPI This patient is a 46-year-old male presenting to the emergency department for follow-up on his shortness of breath. He states he is currently asymptomatic and wanted to have his lungs rechecked. He had a chest x-ray on January 27 which showed no infiltrate, edema, fluid, or other significant abnormalities. No complaints currently. ROS All systems reviewed and are negative except as per history of present illness. Medications Home Meds Active Scripts Albuterol Sulfate* (Ventolin HFA*) 18 Gm Hfa.aer.ad, 2 PUFF INHALATION Q4H, #1 INHALER Prov:KENDALL GALAN PA-C 02/09/17 Furosemide* (Lasix*) 20 Mg Tablet, 20 MG PO DAILY, #60 TAB Prov:URBAN KEITH 01/31/17 Furosemide (Lasix) 20 Mg Tab, 20 MG PO DAILY, #60 TAB 1 Refill Prov:DARRELL PLATA 01/29/17 Albuterol Sulfate* (Proair HFA*) 8.5 Gm Hfa.aer.ad, 2 PUFF INH Q4, #1 INHALER Prov:FRANCIE CUETO PA-C 06/09/16 Ibuprofen* (Motrin*) 800 Mg Tab, 800 MG PO Q6H Y for PAIN AND OR ELEVATED TEMP, #30 TAB Prov:RASHIDA YOUNGER DO 10/07/15 Reported Medications Warfarin Sodium* (Coumadin*) 2.5 Mg Tablet, 2.5 MG PO DAILY, TAB TAKE 2 TABLETS BY MOUTH ON SUNDAY AND ONE TABLET ALL OTHER DAYS OF THE WEEK 01/27/17 Allergies Allergies: Coded Allergies: No Known Allergy (Unverified , 10/07/15) PMhx/Soc History of Surgery: Yes (cabg) Anesthesia Reaction: No Hx Neurological Disorder: No Hx Respiratory Disorders: No Hx Cardiac Disorders: Yes (heart valve replacement about 4 mo. ago, CHF) Hx Psychiatric Problems: No Hx Miscellaneous Medical Probl: No Hx Alcohol Use: Yes (occasional social) Hx Substance Use: No Hx Tobacco Use: No Smoking Status: Never smoker Physical Exam Vitals Vital Signs Date Time Temp Pulse Resp B/P Pulse Ox O2 Delivery O2 Flow Rate FiO2 9/22/17 14:32 98.0 78 18 125/71 99 Physical Exam Const: Toxic, well-appearing male in no acute distress. Head: Atraumatic Eyes: Normal Conjunctiva ENT: Normal External Ears, Nose and Mouth. Neck: Full range of motion..~ No meningismus. Resp: Mild inspiratory wheezing to bilateral upper lung woodard. No retractions. No signs of respiratory distress. No crackles noted. Cardio: Regular rate and rhythm, no murmur Skin: No petechiae or rashes Back: No midline or flank tenderness Ext: No cyanosis, or edema Neur: Awake and alert Psych: Normal Mood and Affect Procedures/MDM 46-year-old male presents to the emergency department for follow-up on this of breath. His shortness of breath is currently resolved. Lung examination is unremarkable besides mild inspiratory wheezing. The patient may benefit from an albuterol inhaler which I prescribed for him. He was advised to continue taking all of his medications as prescribed by his primary care physician. I had low suspicion for any life-threatening pathology at time of discharge. The patient is to follow-up closely with his primary care physician and return immediately for any new or worsening symptoms. Departure Diagnosis: Primary Impression: Follow up Condition: Fair Patient Instructions: Coping with Shortness of Breath: Controlling Stress [facility] Usted se dejesus hecho un examen mdico de control que le indica que no est en boy condicin que requiera tratamiento urgente en el Departamento de Emergencia. Un estudio ms profundo y el tratamiento de madrigal condicin pueden esperar sin ningn riesgo hasta que usted sea atendida/o en el consultorio de madrigal mdico o boy cl robert. Es responsabilidad suya arreglar boy leticia para el seguimiento del eulogio. MANEJO DE CONDICIONES NO URGENTES EN EL FUTURO 1) Si usted tiene un mdico de atencin primaria: Usted debera llamar a madrigal mdico de atencin primaria antes de venir al departamento de emergencia. Despus de las horas de consultorio, madrigal doctor o madrigal asociado/a est disponible por telfono. El mdico o enfermero de marisol en el servicio telefnico puede asesorarle por ramona medio para atender el problema, o eulogio contrario se puede programar boy leticia. 2) Si usted no tiene un mdico de atencin primaria: Llame al mdico o clnica de referencia que aparece abajo adriana las horas de consultorio para hacer boy leticia para que le vean. CLINICAS: [facility] [id number] [facility] [phone] [facility] [phone] [place] [phone] [facility] [phone] [id number] [facility] [facility]. [phone] [address] Additional Instructions: No mas mejor en 2-3 bo, regresar. Mas peor en 24 horas, regresear rapidamente. Ir a doctor primario in 5-7 bo. Usar instrucciones cuando julius medicamento. KENDALL GALAN PA-C Feb 09, 2017 16:22
== END 2017-02-09 16:30 | disposition home or self-care (01) ==
LOC: FTE 14:12
DX: R06.02 Shortness of breath (principal); I50.9 Heart failure, unspecified; Z79.01 Long term (current) use of anticoagulants; Z95.1 Presence of aortocoronary bypass graft
CPT/HCPCS: 99283

== ENCOUNTER 2017-05-14 12:43 | Emergency (ER) | payer MEDICAID ==
[~2017-05-14] VITALS: Wt 61.0 kg
[~2017-05-14 12:43] MED LIST changes: +ALBU18HF INHALATION
[2017-05-14] MEDS ORDERED: PROM5SYR2 PO (13:52)
[2017-05-14] MEDS ORDERED: ACET325T33 PO (13:52)
[2017-05-14 14:12] VITALS: BP 125/76; PULSE 74; RESP 19; TEMP 98.2
--- NOTE | 2017-05-14 18:18 | ERD ---
ER Documentation Chief Complaint Chief Complaint bodyache/headache/chills since last night HPI 47-year-old male presents to the emergency department complaining of body aches , headache chills, sore throat since last night. Patient denies any vomiting or diarrhea. States that he has not had any medication ROS All systems reviewed and are negative except as per history of present illness. Medications Home Meds Active Scripts Acetaminophen* (Tylenol*) 325 Mg Tablet, 2 TAB PO Q6 Y for PAIN AND OR ELEVATED TEMP, #20 TAB Prov:CAITLIN STEWART PA-C 05/14/17 Promethazine HCl/Codeine (Prometh-Codein 6.25-10 mg/5 ml) 5 Ml Syrup, 5 ML PO Q6 , #60 Prov:CAITLIN STEWART PA-C 05/14/17 Albuterol Sulfate* (Ventolin HFA*) 18 Gm Hfa.aer.ad, 2 PUFF INHALATION Q4H, #1 INHALER Prov:KENDALL GALAN PA-C 02/09/17 Furosemide* (Lasix*) 20 Mg Tablet, 20 MG PO DAILY, #60 TAB Prov:URBAN KEITH 01/31/17 Furosemide (Lasix) 20 Mg Tab, 20 MG PO DAILY, #60 TAB 1 Refill Prov:DARRELL PLATA 01/29/17 Albuterol Sulfate* (Proair HFA*) 8.5 Gm Hfa.aer.ad, 2 PUFF INH Q4, #1 INHALER Prov:FRANCIE CUETO PA-C 06/09/16 Ibuprofen* (Motrin*) 800 Mg Tab, 800 MG PO Q6H Y for PAIN AND OR ELEVATED TEMP, #30 TAB Prov:RASHIDA YOUNGER DO 10/07/15 Reported Medications Warfarin Sodium* (Coumadin*) 2.5 Mg Tablet, 2.5 MG PO DAILY, TAB TAKE 2 TABLETS BY MOUTH ON SUNDAY AND ONE TABLET ALL OTHER DAYS OF THE WEEK 01/27/17 Allergies Allergies: Coded Allergies: No Known Allergy (Unverified , 10/07/15) PMhx/Soc History of Surgery: Yes (cabg) Anesthesia Reaction: No Hx Neurological Disorder: No Hx Respiratory Disorders: No Hx Cardiac Disorders: Yes (heart valve replacement about 4 mo. ago, CHF) Hx Psychiatric Problems: No Hx Miscellaneous Medical Probl: No Hx Alcohol Use: Yes (occasional social) Hx Substance Use: No Hx Tobacco Use: No Physical Exam Vitals Vital Signs Date Time Temp Pulse Resp B/P Pulse Ox O2 Delivery O2 Flow Rate FiO2 05/14/17 14:12 98.2 74 19 125/76 98 Room Air 05/14/17 12:47 98.5 72 12 126/75 98 Physical Exam Const: Well-developed well-nourished no acute distress Head: Atraumatic Eyes: Normal Conjunctiva ENT: Normal External Ears, Nose and Mouth. Neck: Full range of motion..~ No meningismus. Resp: Clear to auscultation bilaterally Cardio: Regular rate and rhythm, no murmurs Abd: Soft, non tender, non distended. Normal bowel sounds Skin: No petechiae or rashes Back: No midline or flank tenderness Ext: No cyanosis, or edema Neur: Awake and alert Psych: Normal Mood and Affect Procedures/MDM This is a 39-year-old male presenting to emergency department with signs and symptoms consistent with a viral upper respirator infection. No evidence of pneumonia or meningitis. Patient stable to be discharged home. Discussed return to the ER for any worsening sinuses. He understands and agrees with plan Departure Diagnosis: Primary Impression: Upper respiratory infection Condition: Stable Patient Instructions: Preventing Common Respiratory Infections, Uri, Viral, No Abx (Adult) Referrals: DOCTOR,NOT ON STAFF (PCP) Additional Instructions: Visite a madrigal mdkalen galan para un EXAMEN.Regrese a estas instalaciones si no se mejora moise esperbamos o moise le dijimos. [place] toda la medicina tiffanie y moise se le indic. Regrese a estas instalaciones si no se mejora moise esperbamos o moise le dijimos. CAITLIN STEWART PA-C May 14, 2017 18:18
== END 2017-05-14 14:10 | disposition home or self-care (01) ==
LOC: FTE 12:43
DX: J06.9 Acute upper respiratory infection, unspecified (principal); I50.9 Heart failure, unspecified; Z98.61 Coronary angioplasty status; Z79.01 Long term (current) use of anticoagulants
CPT/HCPCS: 99283